=== PATIENT | female | born 1995 | race Caucasian/White ===

== ENCOUNTER 2023-05-09 08:54 | Emergency (ER) | payer SELFPAY ==
[2023-05-09 09:01] VITALS: BP 108/67; PULSE 68; RESP 18; TEMP 36.6; O2SAT 99; BMI 25.5
--- NOTE | 2023-05-09 09:06 | ED.FEMALEGU1 ---
HPI - Female Genitourinary General Chief complaint: Vaginal Bleeding Stated complaint: ABDOMINAL PAIN Time Seen by Provider: 05/09/23 09:06 Mode of arrival: walk-in History of Present Illness HPI Narrative: The patient presenting to us with suprapubic pain associated with vaginal bleeding after she started to having her menstruation on Sunday which is 3 days ago, the patient is having severe pain and she already have 3 days of menstruation usually during which she will have heavy., But the patient mentioned that at this time she feels like it is more than usual although she has been feeling this way for the last 3-4. And she mentioned that sometimes she will have chills and decrease in her temperature whenever she is having pain and it mostly crampy pain There was no change in bowel movement there was no other complaints and the patient had no risk factor for STD, no abnormal vaginal discharge she mentioned only that the bleeding has some smell to it , but she had no vaginal discharge that have foul smell before the bleeding Related Data Home Medications Medication Instructions Recorded Confirmed No Known Home Medications 05/09/23 05/09/23 Allergies Allergy/AdvReac Type Severity Reaction Status Date / Time Penicillins AdvReac Severe Verified 05/09/23 09:01 Review of Systems ROS Status of ROS 10 or more systems reviewed and unremarkable except as noted in history and below [facility] Social History Smoking status: Never smoker Exam Narrative Exam Narrative: Nurses notes and vital signs reviewed and patient is not hypoxic. General: Well-appearing and in no apparent distress. Skin: Warm, dry, no pallor noted. No rash. Head: Normocephalic, atraumatic. Neck: Supple, non-tender. Eye: Pupils are equal, round and EOMI. No scleral icterus. Ears, Nose, Mouth, and Throat: TM are clear, no nasal mucosal hypertrophy. Oral mucosa is moist, no posterior oropharynx erythema, uvula is mid-line Cardiovascular: Regular Rate and Rhythm without murmur, gallop or rub. Respiratory: No accessory muscle use or respiratory distress. Lungs are clear to auscultation, no wheezing, rales or rhonchi Chest Wall: no tenderness Back: No midline thoracic or lumbar vertebral tenderness. No CVA tenderness Musculoskeletal: normal ROM, no calf or popliteal tenderness, no lower extremity edema/swelling GI: Abdomen is soft, non-distended. The patient have suprapubic discomfort No tenderness to palpation. No rebound, guarding, or rigidity noted. Neurological: A&O x4. No cranial nerve dysfunction observed. No truncal ataxia. Moves all extremities. Sensation intact. Psychiatric: Cooperative and interactive. Normal mood and affect. Constitutional Vital Signs, click to edit/add: Last Vital Signs Temp 97.9 F 05/09/23 09:01 Pulse 70 05/09/23 10:33 Resp 18 05/09/23 10:33 BP 126/68 05/09/23 10:33 Pulse Ox 98 05/09/23 10:33 O2 Del Method Room Air 05/09/23 09:01 Course Vital Signs Vital signs: Vital Signs Temperature 97.9 F 05/09/23 09:01 Pulse Rate 68 05/09/23 09:01 Respiratory Rate 18 05/09/23 09:01 Blood Pressure 108/67 05/09/23 09:01 Pulse Oximetry 99 05/09/23 09:01 Oxygen Delivery Method Room Air 05/09/23 09:01 Temperature 97.9 F 05/09/23 09:01 Pulse Rate 70 05/09/23 10:33 Respiratory Rate 18 05/09/23 10:33 Blood Pressure 126/68 05/09/23 10:33 Pulse Oximetry 98 05/09/23 10:33 Oxygen Delivery Method Room Air 05/09/23 09:01 MDM - Female Genitourinary MDM Narrative Medical decision making narrative: test was negative urinalysis showed no UTI and her CBC and chemistry were within normal Ultrasound of the uterus showed no acute pathology The patient was discharged after her symptoms got better her presentation is mostly secondary to menorrhagia she will follow-up with her [facility] doctor for further evaluation The patient is to follow up with primary care physician in next 2-3 days or to return to the emergency department should any of the signs or symptoms worsen or new symptoms develop. The patient agrees with the following Diagnosis and Treatment plan and the patient will be discharged home. Lab Data Labs: Lab Results 05/09/23 Range/Units 09:20 WBC 5.0 (4.0-11.0) 10^3/uL RBC 4.56 (4.20-5.40) 10^6/uL Hgb 13.7 (12.0-16.0) g/dL Hct 41.1 (36.0-48.0) % MCV 90.1 (81.0-99.0) fL MCH 30.0 (26.7-34.0) pg MCHC 33.3 (29.9-35.2) g/dL RDW 12.7 (11.0-15.0) % Plt Count 222 (150-450) 10^3/uL MPV 10.4 (9.5-13.5) fL Neut % (Auto) 71.1 (43.0-75.0) % Lymph % (Auto) 22.7 (20.5-60.0) % [place] % (Auto) 4.2 (1.7-12.0) % Eos % (Auto) 0.4 L (0.9-7.0) % Baso % (Auto) 1.2 (0.2-2.0) % Neut # (Auto) 3.6 (1.4-6.5) 10^3/uL Lymph # (Auto) 1.1 L (1.2-3.8) 10^3/uL [place] # (Auto) 0.2 L (0.3-0.8) 10^3/uL Eos # (Auto) 0.0 (0.0-0.7) 10^3/uL Baso # (Auto) 0.1 (0.0-0.1) 10^3/uL Abs Immat Gran (auto) 0.02 (0.00-0.03) 10^3/uL Imm/Tot Granulo (auto) 0.4 (0.0-0.5) % Sodium 138 (136-145) mmol/L Potassium 3.8 (3.5-5.1) mmol/L Chloride 106 (98-107) mmol/L Carbon Dioxide 26.2 (21.0-32.0) mmol/L Anion Gap 9.6 BUN 9.0 (7.0-18.0) mg/dL Creatinine 0.68 (0.55-1.02) mg/dL Est GFR ( Amer) >60 (>=60) Est GFR (Non-Af Amer) >60 (>=60) BUN/Creatinine Ratio 13.2 Glucose 97 (74-106) mg/dL Calcium 9.1 (8.5-10.1) mg/dL Total Bilirubin 0.5 (0.2-1.0) mg/dL AST 10 L (15-37) U/L ALT 15 (14-59) U/L Alkaline Phosphatase 58 (46-116) U/L Total Protein 8.0 (6.4-8.2) g/dL Albumin 4.5 (3.4-5.0) g/dL Globulin 3.5 g/dL Albumin/Globulin Ratio 1.3 Urine Color Yellow (YELLOW) Urine Clarity Clear (CLEAR) Urine pH 6.0 (5.0-9.0) Ur Specific [place] 1.015 (1.005-1.025) Urine Protein Negative (NEG/TRACE) mg/dL Urine Glucose (UA) Negative (NEGATIVE) mg/dL Urine Ketones Negative (NEGATIVE) mg/dL Urine Occult Blood Trace-i (NEGATIVE) Urine Nitrite Negative (NEGATIVE) Urine Bilirubin Negative (NEGATIVE) Urine Urobilinogen 0.2 (0.2-1.0) EU/dL Ur Leukocyte Esterase Negative (NEGATIVE) Urine RBC 0-2 (0-2) #/HPF Urine WBC None seen (NONE SEEN) #/HPF Ur Squamous Epith Cells Rare (NONE/RARE) #/LPF Urine Crystals None seen (None Seen) #/HPF Urine Bacteria Trace A (NONE SEEN) #/HPF Urine Casts None seen (NONE SEEN) #/LPF Urine Mucus Trace A (NONE SEEN) Ur Culture Indicated? No Urine HCG, Qual Negative (NEGATIVE) Discharge Plan Discharge Chief Complaint: Vaginal Bleeding Clinical Impression: Menorrhagia Patient Disposition: Home, Self-Care Time of Disposition Decision: 10:41 Prescriptions / Home Meds: No Action No Known Home Medications Instructions: Menorrhagia (ED) Stand Alone Forms: Portal Instructions Referrals: Physician,Non-Staff, MD [Primary Care Provider] - 1 week
--- NOTE | 2023-05-09 09:17 | US_ITS ---
[address] [address] Patient Name: PALLAVI VALENTIN MRN: [id number] date: 1995 Sex: F Assigned Patient Location: ER Current Patient Location: ER Accession/Order Number: [id number] Exam Date: 05/09/2023 09:20 Report Date: 05/09/2023 10:21 At the request of: SHINE CASTILLO Procedure: US pelvis transvaginal PROCEDURE: US pelvis transvaginal, 05/09/2023 9:20 AM EDT CLINICAL INDICATIONS: Severe pelvic pain, cramping, excessive bleeding 4 para 3 LMP 05/06/2023 COMPARISON: None TECHNIQUE: Transvaginal pelvic sonogram, grayscale color and spectral assessment. FINDINGS: Uterus: 9.2 x 6.2 x 3.2 cm. Uterus is retroflexed. Endometrial echo complex 0.5 cm. Normal uterine sonographic morphology. No focal abnormality evident. Right ovary: 5.5 x 2.1 x 2.1 cm, volume 13 mL. Normal sonographic morphology. Subcentimeter follicles identified. Left ovary: 4.0 x 2.3 x 2.6 cm. Volume 12 mL. Normal sonographic morphology. Subcentimeter follicle seen. DUPLEX PELVIC VASCULATURE: There is intact flow within the ovarian tissue bilaterally by color-flow assessment. Arterial spectral tracing is identified from within. Right resistive index 0.61. Left 0.58. No free fluid. US/US pelvis transvaginal IMPRESSION: 1. Retroflexed uterus 2. Normal uterine and ovarian sonographic morphology 3. No sonographic sign of adnexal torsion Electronically authenticated by: KARLY CRUZ Date: 05/09/2023 10:21
[2023-05-09] MEDS: FAMOTIDINE/PF 20 MG/2 ML VIAL IV (09:31)
[2023-05-09] MEDS: KETOROLAC TROMETHAMINE 30 MG/ML VIAL 15 MG IVP (09:31)
[2023-05-09] MEDS: ONDANSETRON PF 4 MG/2 ML VIAL IV (09:31)
[2023-05-09 09:32] LABS: Basophils Absolute Auto 0.1 10^3/uL (0.0-0.1); Basophils Percent Auto 1.2 % (0.2-2.0); Eosinophils Percent Auto 0.4 % (0.9-7.0); Hematocrit 41.1 % (36.0-48.0); Hemoglobin 13.7 g/dL (12.0-16.0); Immature Granulocytes Abs Auto 0.02 10^3/uL (0.00-0.03); Immature Granulocytes Pct Auto 0.4 % (0.0-0.5); Lymphocytes Absolute Auto 1.1 10^3/uL (1.2-3.8); Lymphocytes Percent Auto 22.7 % (20.5-60.0); Mean Corpuscular HGB Conc 33.3 g/dL (29.9-35.2); Mean Corpuscular Volume 90.1 fL (81.0-99.0); Mean Platelet Volume 10.4 fL (9.5-13.5); Monocytes Absolute Auto 0.2 10^3/uL (0.3-0.8); Monocytes Percent Auto 4.2 % (1.7-12.0); Neutrophils Absolute Auto 3.6 10^3/uL (1.4-6.5); Neutrophils Percent Auto 71.1 % (43.0-75.0); Platelet Count 222 10^3/uL (150-450); Red Blood Count 4.56 10^6/uL (4.20-5.40); Red Cell Distribution Width 12.7 % (11.0-15.0)
[2023-05-09 09:33] LABS: Bilirubin Urine NEGATIVE (NEGATIVE); Blood Urine TRACE-I (NEGATIVE); Clarity Urine CLEAR (CLEAR); Color Urine YELLOW (YELLOW); Glucose Urine UA NEGATIVE (NEGATIVE); Ketones Urine NEGATIVE (NEGATIVE); Leukocyte Esterase Urine NEGATIVE (NEGATIVE); Nitrite Urine NEGATIVE (NEGATIVE); Protein Urine NEGATIVE (NEG/TRACE); Specific Gravity Urine 1.015 (1.005-1.025); Urobilinogen Urine 0.2 EU/dL (0.2-1.0)
[2023-05-09 09:39] LABS: Urine Microscopic Indicated YES
[2023-05-09 09:42] VITALS: BP 103/60; PULSE 60; RESP 18; O2SAT 98
[2023-05-09 09:44] LABS: Bacteria Urine TRACE #/HPF (NONE SEEN); Cast Seen? NONE SEEN #/LPF (NONE SEEN); Crystals Seen? None Seen #/HPF (None Seen); Mucus Urine TRACE (NONE SEEN); RBC Urine 0-2 #/HPF (0-2); Squamous Epithelial Cell Urine RARE #/LPF (NONE/RARE); Urine Culture Indicated NO; WBC Urine NONE SEEN #/HPF (NONE SEEN)
[2023-05-09 09:45] LABS: HCG Qualitative Urine* NEGATIVE (NEGATIVE)
[2023-05-09 09:46] LABS: Alanine Aminotransferase 15 U/L (14-59); Albumin Globulin Ratio 1.3; Albumin Level 4.5 g/dL (3.4-5.0); Alkaline Phosphatase 58 U/L (46-116); Anion Gap 9.6; Aspartate Amino Transferase 10 U/L (15-37); BUN Creatinine Ratio 13.2; Bilirubin Total 0.5 mg/dL (0.2-1.0); Calcium 9.1 mg/dL (8.5-10.1); Carbon Dioxide 26.2 mmol/L (21.0-32.0); Chloride 106 mmol/L (98-107); Estimated GFR (African America >60 (>=60); Estimated GFR (Non-African Ame >60 (>=60); Globulin 3.5 g/dL; Glucose 97 mg/dL (74-106); Potassium 3.8 mmol/L (3.5-5.1); Sodium 138 mmol/L (136-145)
[2023-05-09 10:33] VITALS: BP 126/68; PULSE 70; RESP 18; O2SAT 98
[2023-05-10 21:08] LABS: Neisseria gonorrhoeae, NAA Negative (Negative)
== END 2023-05-09 10:48 | disposition home or self-care (01) ==
PROVIDERS: Emergency Provider Emergency Medicine
DX: N92.0 Excessive and frequent menstruation with regular cycle (principal)
CPT/HCPCS: 36415; 76830; 80053; 81001; 84703; 85025; 87491; 87591; 96374; 96375; 99284